=== PATIENT | male | born 1970 | race Caucasian/White ===

== ENCOUNTER 2017-05-23 12:27 | Emergency (ER) | payer SELFPAY ==
[~2017-05-23] VITALS: Ht 198.1 cm; Wt 86.2 kg
[~2017-05-23 12:27] MED LIST: ACET500 PO; ALBU2SYA; ALBU90I INH; ALBU90OI INH; AMOX500 PO; AZIT250 PO; Amoxicillin500 MG PO; CIPR500 PO; CYCL10 PO; GUAI120S1 PO; HYDACE5 PO; HYDACE7.5 PO; IBUP600 PO; IBUP800 PO; Mucinex600 MG PO; NAPR500 PO; OMNICEF; OXYACE5T PO; PENVK500 PO; PRED1SY; PRED20 PO; PROM25 PO; Prednisone20 MG PO; SPACE CHAMBER1 EACH MC; SPACER IH; SULTRIDS PO; VICODIN 5-3001 EACH PO; Vibramycin100 MG PO; Zithromax250 MG PO
[2017-05-23] MEDS ORDERED: ALBU90OI INH (13:11)
[2017-05-23] MEDS ORDERED: Vibramycin100 MG PO (13:11)
[2017-05-23] MEDS ORDERED: SPACE CHAMBER1 EACH INH (13:11)
[2017-05-23] MEDS ORDERED: Cheratussin AC118 ML PO (13:11)
== END 2017-05-23 13:21 | disposition home or self-care (01) ==
LOC: ER 12:27
DX: R05 Cough (principal); F17.210 Nicotine dependence, cigarettes, uncomplicated; Z79.2 Long term (current) use of antibiotics; Z90.89 Acquired absence of other organs
CPT/HCPCS: 71046; 94640; 99284

== ENCOUNTER 2017-09-02 15:05 | Emergency (ER) | payer MEDICAID ==
[~2017-09-02] VITALS: Ht 198.1 cm; Wt 90.7 kg
[~2017-09-02 15:05] MED LIST changes: +Cheratussin AC118 ML PO; +SPACE CHAMBER1 EACH INH
[2017-09-02] MEDS ORDERED: ALBU90OI INH (16:39)
[2017-09-02] MEDS ORDERED: Zithromax250 MG PO (16:39)
[2017-09-02] MEDS ORDERED: Cheratussin AC118 ML PO (16:39)
[2017-09-02] MEDS ORDERED: Prednisone20 MG PO (16:39)
[2017-09-02] MEDS ORDERED: BENZ100A PO (16:39)
== END 2017-09-02 16:49 | disposition home or self-care (01) ==
LOC: ER 15:05
DX: J18.9 Pneumonia, unspecified organism (principal); F17.210 Nicotine dependence, cigarettes, uncomplicated; Z79.2 Long term (current) use of antibiotics
CPT/HCPCS: 71046; 94640; 96372; 99284; J0696

== ENCOUNTER 2018-06-12 21:27 | Emergency (ER) | payer OTHER ==
[~2018-06-12] VITALS: Ht 198.1 cm; Wt 86.2 kg
[~2018-06-12 21:27] MED LIST changes: +BENZ100A PO
[2018-06-12] MEDS ORDERED: IBUP600 PO (22:57)
== END 2018-06-12 23:33 | disposition home or self-care (01) ==
LOC: ER 21:27
DX: S09.90XA Unspecified injury of head, initial encounter (principal); S81.811A Laceration without foreign body, right lower leg, initial encounter; S01.511A Laceration without foreign body of lip, initial encounter; F17.200 Nicotine dependence, unspecified, uncomplicated; V03.90XA Pedestrian on foot injured in collision with car, pick-up truck or van, unspecified whether traffic or nontraffic accident, initial encounter
CPT/HCPCS: 12002; 70450; 70486; 71046; 72125; 90471; 90714; 99284-25

== ENCOUNTER 2018-09-03 09:56 | Observation (INO) | payer OTHER ==
[~2018-09-03] VITALS: Ht 188 cm; Wt 83.9 kg
== END 2018-09-03 20:32 | disposition home or self-care (01) ==
LOC: ER 09:56 → EOR 09:57
PROVIDERS: ADMIT Emergency Medicine
DX: F23 Brief psychotic disorder (principal); F15.129 Other stimulant abuse with intoxication, unspecified; F17.200 Nicotine dependence, unspecified, uncomplicated
CPT/HCPCS: 96372; 99285-25; G0378; J1200; J1630; J2060

== ENCOUNTER 2018-10-01 22:56 | Emergency (ER) | payer MEDICAID ==
[~2018-10-01] VITALS: Ht 198.1 cm; Wt 79.4 kg
== END 2018-10-02 05:41 | disposition home or self-care (01) ==
LOC: ER 22:56
DX: F15.959 Other stimulant use, unspecified with stimulant-induced psychotic disorder, unspecified (principal); F17.200 Nicotine dependence, unspecified, uncomplicated
CPT/HCPCS: 96372; 99284-25; J1200; J1630; J2060

== ENCOUNTER 2019-05-20 12:00 | Emergency (ER) | payer OTHER ==
[~2019-05-20] VITALS: Ht 198.1 cm; Wt 86.2 kg
[2019-05-20] MEDS ORDERED: Prednisone20 MG PO (13:44)
[2019-05-20] MEDS ORDERED: ALBU90OI INH (13:48)
== END 2019-05-20 13:49 | disposition home or self-care (01) ==
LOC: ER 12:00
DX: J40 Bronchitis, not specified as acute or chronic (principal); F17.200 Nicotine dependence, unspecified, uncomplicated
CPT/HCPCS: 71046; 99283-25; J7512

== ENCOUNTER 2020-03-11 10:21 | Emergency (ER) | payer OTHER ==
[~2020-03-11] VITALS: Ht 198.1 cm; Wt 86.2 kg
[~2020-03-11 10:21] MED LIST changes: +TRAZ50 PO
== END 2020-03-11 15:06 | disposition left against medical advice (07) ==
LOC: ER 10:21
DX: Z53.21 Procedure and treatment not carried out due to patient leaving prior to being seen by health care provider (principal)

== ENCOUNTER 2020-03-18 15:23 | Emergency (ER) | payer OTHER ==
[~2020-03-18] VITALS: Ht 198.1 cm; Wt 83.9 kg
[~2020-03-18 15:23] MED LIST changes: -TRAZ50 PO
[2020-03-18] MEDS ORDERED: PRED5 PO (18:17)
[2020-03-18] MEDS ORDERED: Doxycycline150 MG PO (18:17)
[2020-03-18 18:59] LABS: BASOPHILS ABSOLUTE AUTO 0.08 K/mm3 (0.00-0.23); BASOPHILS PERCENT AUTO 0 % (0-2); EOSINOPHILS PERCENT AUTO 0 % (0-6); Hemoglobin 21.3 g/dL (13.5-17.5); IMMATURE GRAN ABSOLUTE AUTO 0.11 K/mm3 (0.00-0.10); IMMATURE GRAN PERCENT AUTO 1 % (0-1); LYMPHOCYTES ABSOLUTE AUTO 1.78 K/mm3 (0.84-5.20); LYMPHOCYTES PERCENT AUTO 10 % (21-46); MONOCYTES ABSOLUTE AUTO 1.83 K/mm3 (0.16-1.47); MONOCYTES PERCENT AUTO 10 % (4-13); Mean Corpuscular HGB 30.9 pg (26.0-34.0); Mean Corpuscular HGB Conc 34.1 g/dL (31.5-36.5); Mean Corpuscular Volume 91 fL (80-100); Mean Platelet Volume 9.1 fL (9.1-12.4); NEUTROPHILS ABSOLUTE AUTO 14.94 K/mm3 (1.96-9.15); NEUTROPHILS PERCENT AUTO 80 % (41-73); Platelet Count 285 K/mm3 (150-400); RDW Standard Deviation 45.2 fL (35.1-46.3); White Blood Cell Count 18.74 K/mm3 (4.00-11.30)
[2020-03-18 19:24] LABS: Hematocrit 62.5 % (37.0-53.0)
[2020-03-18 19:37] LABS: Alanine Aminotransfer (ALT/SGP 362 U/L (12-78); Albumin/Globulin Ratio 0.8 (0.8-1.8); Alk Phos 101 U/L (50-136); Anion Gap 10 mmol/L (6-16); Aspartate Aminotrans (AST/SGOT 1385 U/L (12-37); Bilirubin, Total 1.2 mg/dL (0.1-1.0); Blood Urea Nitrogen 24 mg/dL (8-24); Bun/Creatinine Ratio 22.6 (12.0-20.0); CO2, Blood 27 mmol/L (21-32); Calcium, Blood 9.5 mg/dL (8.5-10.1); Chloride, Blood 99 mmol/L (98-108); Creatinine, Blood 1.06 mg/dL (0.60-1.20); Glomerular Filtration Rate >60 (60-); Glucose, Blood 104 mg/dL (70-99); Potassium, Blood 4.6 mmol/L (3.5-5.5); Sodium, Blood 136 mmol/L (136-145)
== END 2020-03-18 20:14 | disposition left against medical advice (07) ==
LOC: ER 15:23
PROVIDERS: Physician Assistant
DX: J18.9 Pneumonia, unspecified organism (principal); F15.10 Other stimulant abuse, uncomplicated; Z53.20 Procedure and treatment not carried out because of patient's decision for unspecified reasons; Z79.52 Long term (current) use of systemic steroids; Z79.899 Other long term (current) drug therapy
CPT/HCPCS: 36415; 80053; 83605; 85025; 94640; 96360; 99285-25; J2060; J7030

== ENCOUNTER 2020-03-22 08:31 | Inpatient (IN) | payer OTHER ==
[~2020-03-22] VITALS: Ht 198.1 cm; Wt 84.5 kg
[~2020-03-22 08:31] MED LIST changes: +Doxycycline150 MG PO; +PRED5 PO
[2020-03-22 10:00] LABS: BASOPHILS ABSOLUTE AUTO 0.04 K/mm3 (0.00-0.23); BASOPHILS PERCENT AUTO 0 % (0-2); EOSINOPHILS ABSOLUTE AUTO 0.15 K/mm3 (0.00-0.68); EOSINOPHILS PERCENT AUTO 1 % (0-6); Hematocrit 52.7 % (37.0-53.0); Hemoglobin 18.4 g/dL (13.5-17.5); IMMATURE GRAN ABSOLUTE AUTO 0.07 K/mm3 (0.00-0.10); IMMATURE GRAN PERCENT AUTO 1 % (0-1); LYMPHOCYTES ABSOLUTE AUTO 1.51 K/mm3 (0.84-5.20); LYMPHOCYTES PERCENT AUTO 13 % (21-46); MONOCYTES ABSOLUTE AUTO 1.13 K/mm3 (0.16-1.47); MONOCYTES PERCENT AUTO 10 % (4-13); Mean Corpuscular HGB 31.3 pg (26.0-34.0); Mean Corpuscular HGB Conc 34.9 g/dL (31.5-36.5); Mean Corpuscular Volume 90 fL (80-100); Mean Platelet Volume 9.4 fL (9.1-12.4); NEUTROPHILS ABSOLUTE AUTO 9.03 K/mm3 (1.96-9.15); NEUTROPHILS PERCENT AUTO 76 % (41-73); Platelet Count 248 K/mm3 (150-400); RDW Coefficient Variation 13.3 % (11.7-14.2); RDW Standard Deviation 43.8 fL (35.1-46.3); Red Blood Cell Count 5.87 M/mm3 (4.30-5.90); White Blood Cell Count 11.93 K/mm3 (4.00-11.30)
[2020-03-22 10:24] LABS: Troponin I 0.025 ng/mL (0.000-0.040)
[2020-03-22 10:35] LABS: Albumin, Blood 3.8 g/dL (3.4-5.0); Albumin/Globulin Ratio 0.9 (0.8-1.8); Bilirubin, Total 1.3 mg/dL (0.1-1.0); Bun/Creatinine Ratio 24.4 (12.0-20.0); Calcium, Blood 8.6 mg/dL (8.5-10.1); Creatinine, Blood 3.52 mg/dL (0.60-1.20); Globulin, Blood 4.2 g/dL (2.2-4.0); Potassium, Blood 4.4 mmol/L (3.5-5.5)
[2020-03-22] MEDS ORDERED: TRAZ50 PO (13:21)
[2020-03-22] MEDS ORDERED: ALBU90OI INH (13:22)
[2020-03-22] MEDS ORDERED: GABA400 PO (13:22)
[2020-03-22 13:33] LABS: CPK Creatine Kinase >20000 U/L (39-308)
[2020-03-22 14:29] LABS: Creatine Kinase MB 312.5 ng/mL (0.0-3.6)
[2020-03-22 15:04] LABS: Creatine Kinase MB Index Unable to Calculate (0.0-4.0)
[2020-03-22 15:43] LABS: International Normalized Ratio 0.99; Prothrombin Time Results 10.6 Sec (9.7-11.5)
[2020-03-22 16:01] LABS: U Amphetamine Screen DETECTED; U Barbituate Screen Not Detected; U Benzodiazapine Screen Not Detected; U Buprenorphine Screen Not Detected; U Cannabinoids Screen DETECTED; U Cocaine Screen Not Detected; U Methadone Screen Not Detected; U Methamphetamine Screen DETECTED; U Opiates Screen Not Detected; U Oxycodone Screen Not Detected; U Phencyclidine Screen Not Detected; U Propoxyphene Screen Not Detected
--- NOTE | 2020-03-22 16:59 | NUR ---
PT ADMITTED PT ADMITTED AT 1605. PT ORIENTED TO ROOM. CALL LIGHT IN REACH. SNACK PROVIDED. MEDS ADMINISTERED. PT STATES HE HAS PAIN BUT DOES NOT NEED A PAIN PILL AT THIS TIME. VITALS SIGNS REVIEWED. NO ACUTE CHANGES AT THIS TIME. WILL CONTINUE TO MONITOR UNTIL TURNOVER IS COMPLETE.
[2020-03-22 17:53] LABS: Source, Urine Clean Catch
[2020-03-22 18:01] LABS: Appearance, Urine Clear (Clear); Bilirubin, Urine Neg (Neg); Blood, Urine 5+ (Neg); Color, Urine Yellow (P-Yellow); Glucose Qualitative, Urine Neg (Neg); Ketones, Urine Neg (Neg); Leukocyte Esterase, Urine Neg (Neg); Nitrite, Urine Neg (Neg); Protein, Urine Neg (Neg); Specific Gravity, Urine 1.015 (1.003-1.022); Urobilinogen, Urine NORM (Normal)
[2020-03-22 18:24] LABS: Bacteria Rare /hpf; Squamous Epithelial Cells Rare /hpf (Few); White Blood Cells, Urine 0-2 /hpf (0-5)
[2020-03-22 21:52] LABS: Potassium, Blood 4.3 mmol/L (3.5-5.5)
[2020-03-22 21:53] LABS: CPK Creatine Kinase >20000 U/L (39-308)
--- NOTE | 2020-03-23 04:27 | NUR ---
SHIFT SUMMARY ASSUMED CARE OF PT AT 1900. PT IS A/OX4, PT STATES THAT HE HAS N/T AND PAIN IN HIS BLE BUT IT IS TOLERATE. HEART SOUNDS REGULAR, LUNG SOUNDS HAVE EXP WHEEZES IN L LUNG AND CRACKLES T/O BOTH LUNGS, PT DENIES SOB. PT HAS HAD A HEALTHY APPETITE. PT USED URINAL AT BEDSIDE. NO ACUTE EVENTS DURING THE NIGHT. PT SLEPT T/O THE NIGHT. CALL LIGHT IN REACH, BED IN LOWEST POSITION, WILL CONTINUE TO MONITOR UNTIL DAYSHIFT NURSE ARRIVES.
[2020-03-23 05:00] LABS: BASOPHILS ABSOLUTE AUTO 0.04 K/mm3 (0.00-0.23); BASOPHILS PERCENT AUTO 1 % (0-2); EOSINOPHILS ABSOLUTE AUTO 0.26 K/mm3 (0.00-0.68); EOSINOPHILS PERCENT AUTO 4 % (0-6); Hematocrit 43.3 % (37.0-53.0); Hemoglobin 15.2 g/dL (13.5-17.5); IMMATURE GRAN ABSOLUTE AUTO 0.06 K/mm3 (0.00-0.10); IMMATURE GRAN PERCENT AUTO 1 % (0-1); LYMPHOCYTES ABSOLUTE AUTO 1.89 K/mm3 (0.84-5.20); LYMPHOCYTES PERCENT AUTO 26 % (21-46); MONOCYTES ABSOLUTE AUTO 0.76 K/mm3 (0.16-1.47); MONOCYTES PERCENT AUTO 10 % (4-13); Mean Corpuscular HGB 31.8 pg (26.0-34.0); Mean Corpuscular HGB Conc 35.1 g/dL (31.5-36.5); Mean Corpuscular Volume 91 fL (80-100); Mean Platelet Volume 9.7 fL (9.1-12.4); NEUTROPHILS ABSOLUTE AUTO 4.31 K/mm3 (1.96-9.15); NEUTROPHILS PERCENT AUTO 59 % (41-73); Platelet Count 170 K/mm3 (150-400); RDW Coefficient Variation 13.2 % (11.7-14.2); RDW Standard Deviation 44.1 fL (35.1-46.3); Red Blood Cell Count 4.78 M/mm3 (4.30-5.90); White Blood Cell Count 7.32 K/mm3 (4.00-11.30)
[2020-03-23 05:57] LABS: Alanine Aminotransfer (ALT/SGP 434 U/L (12-78); Albumin, Blood 2.5 g/dL (3.4-5.0); Alk Phos 56 U/L (50-136); Anion Gap 5 mmol/L (6-16); Bilirubin, Total 0.6 mg/dL (0.1-1.0); Blood Urea Nitrogen 74 mg/dL (8-24); Bun/Creatinine Ratio 27.3 (12.0-20.0); CO2, Blood 24 mmol/L (21-32); Calcium, Blood 8.1 mg/dL (8.5-10.1); Chloride, Blood 111 mmol/L (98-108); Creatinine, Blood 2.71 mg/dL (0.60-1.20); Glomerular Filtration Rate 27 (60-); Glucose, Blood 105 mg/dL (70-99); Phosphorus, Blood 4.5 mg/dL (2.5-4.9); Potassium, Blood 4.5 mmol/L (3.5-5.5); Sodium, Blood 140 mmol/L (136-145); Uric Acid, Blood 9.4 mg/dL (3.5-7.2)
[2020-03-23 06:10] LABS: HBSAG SCREEN Negative (Negative); HEP A AB, IGM Negative (Negative); HEP B CORE AB, IGM Negative (Negative); HEP C VIRUS AB >11.0 (0.0-0.9)
[2020-03-23 06:24] LABS: Albumin/Globulin Ratio 0.8 (0.8-1.8); Aspartate Aminotrans (AST/SGOT 1040 U/L (12-37); Globulin, Blood 3.1 g/dL (2.2-4.0); Total Protein, Blood 5.6 g/dL (6.4-8.2)
[2020-03-23 06:25] LABS: CPK Creatine Kinase >20000 U/L (39-308)
[2020-03-23 07:10] LABS: HBSAG SCREEN Negative (Negative); HEP B CORE AB, TOT Negative (Negative); HEP C VIRUS AB >11.0 (0.0-0.9)
--- NOTE | 2020-03-23 14:42 | NUR ---
Patient is sitting up in bed and alert. Patient immediately tells me about his addiction and the medical issues he has caused. He talks about his desire to stop using, his desire to get right with God and his desire to get back to the people who truly care about him. Patient tells me personal stories about his past and about the consequences for the decisions he has made. I hear confession, reinforce helpful attitudes and practices and provide therapeutic listening, pastoral licensed mental health counselor and prayer. Patient respond well and with tears at times. Patient shows signs of catharsis. I will continue to remain available to patient and family.
--- NOTE | 2020-03-23 17:30 | NUR ---
SHIFT SUMMARY PT REPOSITIONING SELF IN BED. ENCOURAGED TO KEEP LE'S ELEVATED DUE TO SWELLING TO THEM. STATES HE IS BEGINNING TO GET FEELING BACK IN L FOOT. BLISTERS TO LE'S INTACT. HAS BEEN DOING BED EXERCISES RECOMMENDED BY Sander. FATHER IN TO VISIT EARLIER TODAY. PROVIDED OPPORTUNITY FOR PT TO TALK ABOUT RELAPSING AND PLANS ON DISCHARGE. STATES HE IS DEBATING WHETHER TO DO OP REHAB OR GO BACK TO INPT. USING A URINAL. HAS AN OSTOMY THAT HE REPORTS HASN'T PRODUCED ANYTHING YET TODAY. APPETITE GOOD AND REPORTS BEING QUITE HUNGRY.
--- NOTE | 2020-03-24 05:03 | NUR ---
SHIFT SUMMARY PT PLEASANT AND COOPERATIVE. SLEPT THROUGH MUCH OF THE NIGHT. CONTINUES TO HAVE DIFFICULTY WITH MOVEMENT IN BLE'S, MORE SEVERE IN HIS LLE. PT DOES HOWEVER REPORT THAT HE FEELS IF HE HAS INCREASED SENSATION DOWN TO HIS BLE'S. PT REPORTED THAT THIS INCREASED SENSATION ALONG WITH WORKING WITH PHYSICAL THERAPY DURING THE DAY HAD CAUSED HIM TO HAVE INCREASED PAIN IN BLE'S. STATING 8/10 PAIN. MEDICATED X 1 WITH 50 MG ULTRAM. PT REMAINED IN BED THROUGHOUT THE NIGHT. VITAL SIGNS STABLE. NO OTHER ACUTE CHANGES. WILL CONTINUE TO MONITOR.
[2020-03-24 05:14] LABS: BASOPHILS ABSOLUTE AUTO 0.04 K/mm3 (0.00-0.23); BASOPHILS PERCENT AUTO 1 % (0-2); EOSINOPHILS ABSOLUTE AUTO 0.24 K/mm3 (0.00-0.68); EOSINOPHILS PERCENT AUTO 4 % (0-6); Hematocrit 42.1 % (37.0-53.0); Hemoglobin 14.1 g/dL (13.5-17.5); IMMATURE GRAN ABSOLUTE AUTO 0.05 K/mm3 (0.00-0.10); IMMATURE GRAN PERCENT AUTO 1 % (0-1); LYMPHOCYTES ABSOLUTE AUTO 1.62 K/mm3 (0.84-5.20); LYMPHOCYTES PERCENT AUTO 26 % (21-46); MONOCYTES ABSOLUTE AUTO 0.56 K/mm3 (0.16-1.47); MONOCYTES PERCENT AUTO 9 % (4-13); Mean Corpuscular HGB 31.1 pg (26.0-34.0); Mean Corpuscular HGB Conc 33.5 g/dL (31.5-36.5); Mean Corpuscular Volume 93 fL (80-100); Mean Platelet Volume 9.3 fL (9.1-12.4); NEUTROPHILS PERCENT AUTO 60 % (41-73); Platelet Count 156 K/mm3 (150-400); RDW Coefficient Variation 13.2 % (11.7-14.2); RDW Standard Deviation 45.1 fL (35.1-46.3); Red Blood Cell Count 4.54 M/mm3 (4.30-5.90); White Blood Cell Count 6.21 K/mm3 (4.00-11.30)
[2020-03-24 05:36] LABS: Albumin, Blood 2.3 g/dL (3.4-5.0); Albumin/Globulin Ratio 0.7 (0.8-1.8); Bilirubin, Total 0.4 mg/dL (0.1-1.0); Bun/Creatinine Ratio 22.7 (12.0-20.0); Calcium, Blood 8.1 mg/dL (8.5-10.1); Creatinine, Blood 1.94 mg/dL (0.60-1.20); Globulin, Blood 3.1 g/dL (2.2-4.0); Potassium, Blood 4.7 mmol/L (3.5-5.5); Total Protein, Blood 5.4 g/dL (6.4-8.2)
[2020-03-24 09:11] LABS: Creatine Kinase MB 34.1 ng/mL (0.0-3.6)
[2020-03-24 09:19] LABS: Creatine Kinase MB Index 0.3 (0.0-4.0)
--- NOTE | 2020-03-24 17:07 | NUR ---
SHIFT SUMMARY UP TO CHAIR FOR LUNCH TODAY AFTER WORKING WITH P.T. ABLE TO STAND AND TAKE A FEW SHUFFLING STEPS FROM BED. REPORTS PAIN IS BEGINNING TO WORSEN DUE TO SENSATION COMING BACK INTO FEET AND LE'S. HAS BEEN RESTING ON AND OFF TODAY BUT MOVES ABOUT IN BED FREQUENTLY. FATHER IN TO VISIT FOR A SHORT TIME THIS AFTERNOON AND PT HAS BEEN POSITIVE IN REGARDS TO HIS RECOVERY TODAY.
--- NOTE | 2020-03-25 04:44 | NUR ---
SHIFT SUMMARY PT CONTINUES TO REPORT SLOW IMPROVEMENT OF MOVEMENT AND SENSATION TO BLE'S. PT REPORTS THAT SENSATION RETURNS TO HIS BLE'S HIS PAIN HAS ALSO RETURNED. MEDICATED X 1 W/ 50 MG ULTRAM. MOVEMENT TO LLE CONTINUES TO BE MORE DIFFICULT THAN WITH RLE. PT REMAINED IN BED THIS EVENING. WAS ABLE TO REPOSITION SELF IN BED. USED URINAL INDEPENDENTLY. PT HAD UNEVENTFUL NIGHT. VITAL SIGNS STABLE. WILL CONTINUE TO MONITOR AND REPORT TO DAY RN.
[2020-03-25 05:09] LABS: BASOPHILS ABSOLUTE AUTO 0.06 K/mm3 (0.00-0.23); BASOPHILS PERCENT AUTO 1 % (0-2); EOSINOPHILS ABSOLUTE AUTO 0.26 K/mm3 (0.00-0.68); EOSINOPHILS PERCENT AUTO 4 % (0-6); Hematocrit 44.5 % (37.0-53.0); Hemoglobin 14.7 g/dL (13.5-17.5); IMMATURE GRAN ABSOLUTE AUTO 0.07 K/mm3 (0.00-0.10); IMMATURE GRAN PERCENT AUTO 1 % (0-1); LYMPHOCYTES ABSOLUTE AUTO 1.78 K/mm3 (0.84-5.20); LYMPHOCYTES PERCENT AUTO 27 % (21-46); MONOCYTES ABSOLUTE AUTO 0.66 K/mm3 (0.16-1.47); MONOCYTES PERCENT AUTO 10 % (4-13); Mean Corpuscular HGB 30.8 pg (26.0-34.0); Mean Corpuscular Volume 93 fL (80-100); Mean Platelet Volume 9.5 fL (9.1-12.4); NEUTROPHILS ABSOLUTE AUTO 3.74 K/mm3 (1.96-9.15); NEUTROPHILS PERCENT AUTO 57 % (41-73); Platelet Count 155 K/mm3 (150-400); RDW Coefficient Variation 13.2 % (11.7-14.2); RDW Standard Deviation 45.2 fL (35.1-46.3); Red Blood Cell Count 4.77 M/mm3 (4.30-5.90); White Blood Cell Count 6.57 K/mm3 (4.00-11.30)
[2020-03-25 05:59] LABS: Albumin, Blood 2.4 g/dL (3.4-5.0); Albumin/Globulin Ratio 0.7 (0.8-1.8); Bilirubin, Total 0.4 mg/dL (0.1-1.0); Bun/Creatinine Ratio 17.8 (12.0-20.0); Calcium, Blood 8.5 mg/dL (8.5-10.1); Creatinine, Blood 1.74 mg/dL (0.60-1.20); Globulin, Blood 3.3 g/dL (2.2-4.0); Potassium, Blood 4.7 mmol/L (3.5-5.5); Total Protein, Blood 5.7 g/dL (6.4-8.2)
[2020-03-25 06:06] LABS: Creatine Kinase MB Index 0.2 (0.0-4.0)
[2020-03-25 08:10] LABS: HCV LOG10 6.255 (.); HEPATITIS C QUANTITATION 1800000 IU/mL (.)
--- NOTE | 2020-03-25 17:38 | NUR ---
SHIFT SUMMARY NO ACUTE CHANGES T/O SHIFT, A&Ox4, CALM AND COOPERATIVE WITH CARE. PT REPORTED PAIN TWICE DURING SHIFT AND WAS TREATED PER [facility]. EDEMA STILL PRESENT OF THE BLE AND PT REPORTS MORE FEELING COMING BACK TO HIS BLE. WORKED WITH PHYSICAL THERAPY TODAY AND CONTINUED TO DO ROM EXERCISES T/O SHIFT. PT WAS EXPERIENCING A COUGH T/O DAY, PRN COUGH MEDICATION ORDERED. INHALER ALSO ORDERED FOR PT. COLOSTOMY CARE WAS DONE AND BAG WAS CHANGED BY PT TODAY. PT IS CURRENTLY SITTING UP EATING DINNER, CALL LIGHT WITHIN REACH, BED IN LOWEST POSITION.
[2020-03-26 04:36] LABS: BASOPHILS ABSOLUTE AUTO 0.05 K/mm3 (0.00-0.23); BASOPHILS PERCENT AUTO 1 % (0-2); EOSINOPHILS ABSOLUTE AUTO 0.27 K/mm3 (0.00-0.68); EOSINOPHILS PERCENT AUTO 4 % (0-6); Hematocrit 40.2 % (37.0-53.0); Hemoglobin 13.5 g/dL (13.5-17.5); IMMATURE GRAN ABSOLUTE AUTO 0.09 K/mm3 (0.00-0.10); IMMATURE GRAN PERCENT AUTO 2 % (0-1); LYMPHOCYTES ABSOLUTE AUTO 1.61 K/mm3 (0.84-5.20); LYMPHOCYTES PERCENT AUTO 26 % (21-46); MONOCYTES PERCENT AUTO 10 % (4-13); Mean Corpuscular HGB Conc 33.6 g/dL (31.5-36.5); Mean Corpuscular Volume 92 fL (80-100); Mean Platelet Volume 9.3 fL (9.1-12.4); NEUTROPHILS ABSOLUTE AUTO 3.57 K/mm3 (1.96-9.15); NEUTROPHILS PERCENT AUTO 58 % (41-73); Platelet Count 161 K/mm3 (150-400); RDW Coefficient Variation 13.2 % (11.7-14.2); RDW Standard Deviation 44.7 fL (35.1-46.3); Red Blood Cell Count 4.36 M/mm3 (4.30-5.90); White Blood Cell Count 6.19 K/mm3 (4.00-11.30)
--- NOTE | 2020-03-26 04:57 | NUR ---
SENIOR INFORMATION SYSTEMS ARCHITECT SUMMARY NO NEW S/S THIS SHIFT. PT SLEPT FOR MOST OF THE NIGHT ONLY CALLING TO HAVE HIS URINAL EMPTIED. NS RUNNING AT 200ML/HR WITH GOOD URINE OUTPUT. COLOSTOMY INTACT W SOFT BROWN OUTPUT. WCTM.
[2020-03-26 05:10] LABS: Albumin, Blood 2.2 g/dL (3.4-5.0); Albumin/Globulin Ratio 0.8 (0.8-1.8); Bilirubin, Total 0.3 mg/dL (0.1-1.0); Bun/Creatinine Ratio 18.2 (12.0-20.0); Calcium, Blood 8.1 mg/dL (8.5-10.1); Creatine Kinase MB 9.7 ng/mL (0.0-3.6); Creatinine, Blood 1.54 mg/dL (0.60-1.20); Globulin, Blood 2.9 g/dL (2.2-4.0); Potassium, Blood 4.5 mmol/L (3.5-5.5); Total Protein, Blood 5.1 g/dL (6.4-8.2)
[2020-03-26 05:13] LABS: Creatine Kinase MB Index 0.2 (0.0-4.0)
--- NOTE | 2020-03-27 04:33 | NUR ---
MACHINE STEMMER SUMMARY PT HAD AN UNEVENTFUL NIGHT SLEEPING FOR MOST OF THE SHIFT. PT WOKE AT 0400 REQUESTING PAIN MEDICATION FOR BLE PAIN, PT MEDICATED PER [facility]. NO NEW S/S, WCTM.
[2020-03-27 04:57] LABS: BASOPHILS ABSOLUTE AUTO 0.04 K/mm3 (0.00-0.23); BASOPHILS PERCENT AUTO 1 % (0-2); EOSINOPHILS ABSOLUTE AUTO 0.21 K/mm3 (0.00-0.68); EOSINOPHILS PERCENT AUTO 3 % (0-6); Hematocrit 41.9 % (37.0-53.0); IMMATURE GRAN PERCENT AUTO 1 % (0-1); LYMPHOCYTES ABSOLUTE AUTO 2.08 K/mm3 (0.84-5.20); LYMPHOCYTES PERCENT AUTO 25 % (21-46); MONOCYTES ABSOLUTE AUTO 0.64 K/mm3 (0.16-1.47); MONOCYTES PERCENT AUTO 8 % (4-13); Mean Corpuscular HGB 31.1 pg (26.0-34.0); Mean Corpuscular HGB Conc 33.4 g/dL (31.5-36.5); Mean Corpuscular Volume 93 fL (80-100); Mean Platelet Volume 9.2 fL (9.1-12.4); NEUTROPHILS ABSOLUTE AUTO 5.15 K/mm3 (1.96-9.15); NEUTROPHILS PERCENT AUTO 63 % (41-73); Platelet Count 156 K/mm3 (150-400); RDW Standard Deviation 44.4 fL (35.1-46.3); White Blood Cell Count 8.22 K/mm3 (4.00-11.30)
[2020-03-27 05:29] LABS: Albumin, Blood 2.5 g/dL (3.4-5.0); Albumin/Globulin Ratio 0.8 (0.8-1.8); Bilirubin, Total 0.4 mg/dL (0.1-1.0); Bun/Creatinine Ratio 19.3 (12.0-20.0); Calcium, Blood 8.3 mg/dL (8.5-10.1); Creatine Kinase MB 7.5 ng/mL (0.0-3.6); Creatinine, Blood 1.45 mg/dL (0.60-1.20); Globulin, Blood 3.1 g/dL (2.2-4.0); Potassium, Blood 4.3 mmol/L (3.5-5.5); Total Protein, Blood 5.6 g/dL (6.4-8.2)
[2020-03-27 05:35] LABS: Creatine Kinase MB Index 0.2 (0.0-4.0)
--- NOTE | 2020-03-28 04:20 | NUR ---
PUBLIC AFFAIRS OFFICER SUMMARY NO NEW S/S THIS SHIFT, PT CONTINUES TO HAD GOOD URINE OUTPUT W NS RUNNING AT 125ML/HR. PT CONTINUES TO HAVE INCREASED PAIN IN BLE, TREATED PER [facility] W RELIEF.WCTM.
[2020-03-28 05:27] LABS: BASOPHILS ABSOLUTE AUTO 0.05 K/mm3 (0.00-0.23); BASOPHILS PERCENT AUTO 1 % (0-2); EOSINOPHILS ABSOLUTE AUTO 0.16 K/mm3 (0.00-0.68); EOSINOPHILS PERCENT AUTO 2 % (0-6); Hematocrit 39.8 % (37.0-53.0); Hemoglobin 13.4 g/dL (13.5-17.5); IMMATURE GRAN ABSOLUTE AUTO 0.09 K/mm3 (0.00-0.10); IMMATURE GRAN PERCENT AUTO 1 % (0-1); LYMPHOCYTES ABSOLUTE AUTO 2.44 K/mm3 (0.84-5.20); LYMPHOCYTES PERCENT AUTO 28 % (21-46); MONOCYTES ABSOLUTE AUTO 0.63 K/mm3 (0.16-1.47); MONOCYTES PERCENT AUTO 7 % (4-13); Mean Corpuscular HGB 31.2 pg (26.0-34.0); Mean Corpuscular HGB Conc 33.7 g/dL (31.5-36.5); Mean Corpuscular Volume 93 fL (80-100); Mean Platelet Volume 9.7 fL (9.1-12.4); NEUTROPHILS ABSOLUTE AUTO 5.35 K/mm3 (1.96-9.15); NEUTROPHILS PERCENT AUTO 61 % (41-73); Platelet Count 165 K/mm3 (150-400); RDW Coefficient Variation 13.2 % (11.7-14.2); RDW Standard Deviation 44.8 fL (35.1-46.3); White Blood Cell Count 8.72 K/mm3 (4.00-11.30)
[2020-03-28 06:03] LABS: Albumin, Blood 2.5 g/dL (3.4-5.0); Albumin/Globulin Ratio 0.8 (0.8-1.8); Bilirubin, Total 0.3 mg/dL (0.1-1.0); Bun/Creatinine Ratio 20.4 (12.0-20.0); Creatine Kinase MB 6.3 ng/mL (0.0-3.6); Creatinine, Blood 1.37 mg/dL (0.60-1.20); Globulin, Blood 3.1 g/dL (2.2-4.0); Total Protein, Blood 5.6 g/dL (6.4-8.2)
[2020-03-28 06:08] LABS: Creatine Kinase MB Index 0.2 (0.0-4.0)
--- NOTE | 2020-03-29 04:07 | NUR ---
SHIFT SUMMARY ADMITTED FOR RHABDOMYOLYSIS. FULL CODE. PLAN IS FOR PLACEMENT IN SNF VS. HH. PT DID REQUEST ONE DOSE COUGH SYRUP THIS SHIFT. NS IS INFUSING @ 100 ML/HR. HE HAS A COLOSTOMY THAT HE CARES FOR HIMSELF. CONTACT PRECAUTIONS FOR HX OF MRSA IN WOUND
[2020-03-29 06:09] LABS: BASOPHILS ABSOLUTE AUTO 0.04 K/mm3 (0.00-0.23); BASOPHILS PERCENT AUTO 1 % (0-2); EOSINOPHILS ABSOLUTE AUTO 0.22 K/mm3 (0.00-0.68); EOSINOPHILS PERCENT AUTO 3 % (0-6); Hematocrit 40.8 % (37.0-53.0); Hemoglobin 13.5 g/dL (13.5-17.5); IMMATURE GRAN ABSOLUTE AUTO 0.07 K/mm3 (0.00-0.10); IMMATURE GRAN PERCENT AUTO 1 % (0-1); LYMPHOCYTES PERCENT AUTO 32 % (21-46); MONOCYTES ABSOLUTE AUTO 0.51 K/mm3 (0.16-1.47); MONOCYTES PERCENT AUTO 7 % (4-13); Mean Corpuscular HGB 30.8 pg (26.0-34.0); Mean Corpuscular HGB Conc 33.1 g/dL (31.5-36.5); Mean Corpuscular Volume 93 fL (80-100); Mean Platelet Volume 9.6 fL (9.1-12.4); NEUTROPHILS ABSOLUTE AUTO 4.18 K/mm3 (1.96-9.15); NEUTROPHILS PERCENT AUTO 56 % (41-73); Platelet Count 154 K/mm3 (150-400); RDW Coefficient Variation 13.2 % (11.7-14.2); RDW Standard Deviation 45.5 fL (35.1-46.3); Red Blood Cell Count 4.38 M/mm3 (4.30-5.90); White Blood Cell Count 7.42 K/mm3 (4.00-11.30)
[2020-03-29 06:50] LABS: Albumin, Blood 2.7 g/dL (3.4-5.0); Albumin/Globulin Ratio 0.9 (0.8-1.8); Bilirubin, Total 0.4 mg/dL (0.1-1.0); Bun/Creatinine Ratio 19.9 (12.0-20.0); Calcium, Blood 8.6 mg/dL (8.5-10.1); Creatine Kinase MB 6.1 ng/mL (0.0-3.6); Creatinine, Blood 1.36 mg/dL (0.60-1.20); Globulin, Blood 3.1 g/dL (2.2-4.0); Potassium, Blood 4.2 mmol/L (3.5-5.5); Total Protein, Blood 5.8 g/dL (6.4-8.2)
[2020-03-29 06:54] LABS: Creatine Kinase MB Index 0.4 (0.0-4.0)
--- NOTE | 2020-03-29 16:47 | NUR ---
SHIFT SUMMARY PATIENT MEDICATED X2 FOR PAIN AND X2 FOR COUGH. PATIENT WORKED WITH PT TODAY, UP SBA W/WALKER IN ROOM. PATIENT AMBULATED IN HALLWAY WITH PT. EATING AND DRINKING WELL. PLEASANT AND COOPERATIVE ITH CARE. PATIENT OPEN TO SNF DISCHARGE.
--- NOTE | 2020-03-30 04:21 | NUR ---
SHIFT SUMMARY ADMITTED FOR RHABDOMYOLYSIS. FULL CODE. CONTACT PRECAUTIONS FOR HX OF MRSA IN WOUND. PLAN IS FOR PLACEMENT IN REHAB FACILITY. BLE HAS 2+ EDEMA, PT STATES MOBILITY IS IMPROVED SINCE ADMIT. PRN PAIN RX IS AVAILABLE IN [facility], I HAVE GIVEN TRAMADOL 1X THIS SHIFT. HE HAS A LUQ COLOSTOMY THAT HE CARES FOR HIMSELF. HE HAS A HX OF METH USE AND ETOH. FOUND TO HAVE SHAHEED ON ADMIT.
[2020-03-30 06:07] LABS: Alanine Aminotransfer (ALT/SGP 227 U/L (12-78); Albumin, Blood 2.9 g/dL (3.4-5.0); Albumin/Globulin Ratio 0.8 (0.8-1.8); Alk Phos 48 U/L (50-136); Anion Gap 5 mmol/L (6-16); Aspartate Aminotrans (AST/SGOT 160 U/L (12-37); Bilirubin, Total 0.7 mg/dL (0.1-1.0); Blood Urea Nitrogen 30 mg/dL (8-24); Bun/Creatinine Ratio 26.3 (12.0-20.0); CO2, Blood 30 mmol/L (21-32); CPK Creatine Kinase 963 U/L (39-308); Calcium, Blood 8.4 mg/dL (8.5-10.1); Chloride, Blood 105 mmol/L (98-108); Creatinine, Blood 1.14 mg/dL (0.60-1.20); Globulin, Blood 3.6 g/dL (2.2-4.0); Glomerular Filtration Rate >60 (60-); Glucose, Blood 105 mg/dL (70-99); Potassium, Blood 4.2 mmol/L (3.5-5.5); Sodium, Blood 140 mmol/L (136-145); Total Protein, Blood 6.5 g/dL (6.4-8.2)
--- NOTE | 2020-03-30 17:39 | NUR ---
SHIFT SUMMARY PATIENT MEDICATED FOR PAIN X1 AND COUGH X2 THIS SHIFT. DENIES NAUSEA AND SHORTNESS OF BREATH. WORKED WITH PT TODAY, UP INDEPENDENT W/FWW TO BATHROOM. PATIENT'S FATHER VISITED IN AFTERNOON.
--- NOTE | 2020-03-31 04:44 | NUR ---
SHIFT SUMMARY ADMITTED FOR RHABDOMYOLYSIS. FULL CODE. CONTACT PRECA[facility]IONS FOR HX OF MRSA IN WOUND. FOUND TO HAVE SHAHEED. HE HAS A LUQ COLOSTOMY THAT HE CARES FOR HIMSELF. AWAITING PLACEMENT IN REHAB VS. . PRN TRAMADOL IS AVAILABLE IN [facility]. HE DOES HAVE A HX OF METH AND ETOH USE. HEPARIN INJECTIONS ARE SCHEDULED. BLE HAS 2+ EDEMA.
[2020-03-31 05:00] LABS: Albumin, Blood 3.3 g/dL (3.4-5.0); Anion Gap 3 mmol/L (6-16); Blood Urea Nitrogen 34 mg/dL (8-24); Bun/Creatinine Ratio 25.2 (12.0-20.0); CO2, Blood 32 mmol/L (21-32); Chloride, Blood 104 mmol/L (98-108); Creatinine, Blood 1.35 mg/dL (0.60-1.20); Glomerular Filtration Rate 60 (60-); Glucose, Blood 107 mg/dL (70-99); Phosphorus, Blood 4.1 mg/dL (2.5-4.9); Potassium, Blood 4.4 mmol/L (3.5-5.5); Sodium, Blood 139 mmol/L (136-145)
--- NOTE | 2020-03-31 18:01 | NUR ---
SHIFT SUMMARY PT AXO, PLEASANT AND COOPERATIVE CARE. VSS. PT MEDICATED FOR PAIN PER [facility] AND COUGH X1. PATIENT AMBULATING HALLWAYS THIS SHIFT AND WORKED WITH PHYSICAL THERAPY, SEE NOTE. IV PATENT AND SALINE LOCKED. PT DENIES SOB AND N/V. BED IN LOW POSITION, CALL LIGHT WITHIN REACH. PT UP INDEPENDENTLY IN ROOM.
[2020-04-01 05:03] LABS: Albumin, Blood 3.4 g/dL (3.4-5.0); Anion Gap 3 mmol/L (6-16); Blood Urea Nitrogen 36 mg/dL (8-24); CO2, Blood 32 mmol/L (21-32); Calcium, Blood 8.9 mg/dL (8.5-10.1); Chloride, Blood 103 mmol/L (98-108); Creatinine, Blood 1.24 mg/dL (0.60-1.20); Glomerular Filtration Rate >60 (60-); Glucose, Blood 101 mg/dL (70-99); Phosphorus, Blood 4.1 mg/dL (2.5-4.9); Potassium, Blood 4.4 mmol/L (3.5-5.5); Sodium, Blood 138 mmol/L (136-145)
--- NOTE | 2020-04-01 05:30 | NUR ---
04/01/20 0530 PT AWAKE AND SAID HE SLEPT FOR ABOUT 4-5 HOURS LAST NIGHT. HE EMPTIED COLOSTOMY CONTENTS IN TOILET PRIOR TO MORNING ROUNDS. MEDICATED FOR LEG DISCOMFORT PER JUN AT 0510. VITALS STABLE.
--- NOTE | 2020-04-01 17:38 | NUR ---
SHIFT SUMMARY- PT HAS HAD NO ACUTE CHANGE T/O THE DAY. HE WALKED IN THE PFEIFFER WITH PHYSICAL THERAPY, SCRIPT FOR THE NEEDED EFO FOR THE PT IS IN DISCHARGE PACKET. PLAN IS FOR THE PT TO HAVE A WALKER DELIVERED TO HIM TOMORROW PRIOR TO DISCHARGE HOME. PT HAS RECIEVED INSTRUCTION ON HOW TO GET THE EFO ORDERED ONCE HE IS DISCHARGED. PT ALERT AND ORIENTED INDEPENDENT IN THE ROOM. PT MANAGES HIS OWN OSTOMY CARE. PT IN ISOLATION FOR MRSAOF AN ABCESS LAST MONTH THE SORE IS STILL NOT COMPLETELY HEALED ON HIS LEFT ARM A SCAB THE SIZE OF A 50 CENT PIECE WAS NOTED WITH A REDDENED AREA SURROUNDING IT. PT HAS HAD NO S&S OF DISTRESS T/O THE SHIFT ON ROOM AIR, SHOWERED TODAY INDEPENDENT IN THE ROOM. BLE PAIN MEDICATED PER [facility].
--- NOTE | 2020-04-02 05:03 | NUR ---
SHIFT SUMMARY: FROILAN IS A&OX4. VSS, NO ACUTE EVENTS OVERNIGHT. HE REPORTS TOLERABLE PAIN CONTROL WITH THE ULTRAM. HE USES THE CALL LIGHT APPROPRIATELY. HE VOICED ANXIETIES OVER DISCHARGE TODAY, BUT DENIED ANY DIFFICULTIES AT HOME OR CONCERNS ABOUT RETURNING HOME. HE HAS AN OSTOMY ON THE LEFT SIDE WHICH FROILAN MANAGES INDEPENDENTLY. HE STATES THAT THE PAIN IN HIS BLE EXTREMITIES IS MOSTLY LOCALIZED TO THE BOTTOMS OF HIS FEET NOW. HE IS TOLERATING PO INTAKE WELL. HE USES THE URINAL WITHOUT DIFFICULTY. HE IS LYING IN BED WITH HIS CALL LIGHT IN REACH. WILL REPORT TO DAY SHIFT RN.
[2020-04-02 05:04] LABS: Albumin, Blood 3.4 g/dL (3.4-5.0); Anion Gap 4 mmol/L (6-16); Blood Urea Nitrogen 37 mg/dL (8-24); Bun/Creatinine Ratio 27.6 (12.0-20.0); CO2, Blood 32 mmol/L (21-32); Calcium, Blood 8.9 mg/dL (8.5-10.1); Chloride, Blood 102 mmol/L (98-108); Creatinine, Blood 1.34 mg/dL (0.60-1.20); Glomerular Filtration Rate >60 (60-); Glucose, Blood 104 mg/dL (70-99); Phosphorus, Blood 4.2 mg/dL (2.5-4.9); Potassium, Blood 4.2 mmol/L (3.5-5.5); Sodium, Blood 138 mmol/L (136-145)
[2020-04-02] MEDS ORDERED: B-1100 M2 PO (12:30)
[2020-04-02] MEDS ORDERED: TRAM50 PO (12:31)
[2020-04-02] MEDS ORDERED: FURO20 PO (12:31)
[2020-04-02] MEDS ORDERED: THEREMS MULTI400 MCG PO (12:32)
--- NOTE | 2020-04-02 15:37 | NUR ---
IV PULLED INTACT. NO TELE. DISCHARGE REVIEWEED WITH PT . STATES UNDERSTANDING MEDS AND INST. WALKED TO DOOR WITH FWW. OUT AT 1530
== END 2020-04-02 15:34 | disposition home or self-care (01) | DRG 683 ==
LOC: ER 08:31 → ERHOLD 14:44 → MEDS 15:57
PROVIDERS: Family Medicine; Internal Medicine; Nurse Practitioner Acute Care; Physician Assistant; ADMIT Internal Medicine
DX: N17.9 Acute kidney failure, unspecified (principal); M62.82 Rhabdomyolysis; N39.0 Urinary tract infection, site not specified; Z20.828 Contact with and (suspected) exposure to other viral communicable diseases; F15.10 Other stimulant abuse, uncomplicated; F17.210 Nicotine dependence, cigarettes, uncomplicated; G62.9 Polyneuropathy, unspecified; J44.9 Chronic obstructive pulmonary disease, unspecified; K70.10 Alcoholic hepatitis without ascites; E88.09 Other disorders of plasma-protein metabolism, not elsewhere classified; Z93.3 Colostomy status; B19.20 Unspecified viral hepatitis C without hepatic coma; M51.37 Other intervertebral disc degeneration, lumbosacral region; E87.70 Fluid overload, unspecified; Z86.14 Personal history of Methicillin resistant Staphylococcus aureus infection; F10.20 Alcohol dependence, uncomplicated; M10.9 Gout, unspecified
CPT/HCPCS: 36415; 51798; 71045; 71046; 72148; 76700; 80053; 80069; 80074; 81001; 82550; 82553; 82607; 82746; 83605; 83735; 83880; 84100; 84132; 84443; 84484; 84550; 85025; 85610; 85651; 86140; 86317; 86704; 86708; 86803; 87040; 87340; 87522; 93005; 93010; 93925; 94640; 94760; 96360; 96361; 97110; 97112; 97116; 97162; 97164; 97165; 97530; 97535; 99285-25; A9270-GY; G0480; J0696; J1644; J1940; J3370; J7030; J7050; J7120; J7512; Q2038